=== PATIENT | male | born 1965 | race African-American/Black ===

== ENCOUNTER 2017-08-07 09:13 | Inpatient (IN) | payer OTHER ==
[~2017-08-07] VITALS: Ht 188 cm; Wt 85.3 kg
[2017-08-07] VITALS (19 sets, daily range): BP systolic 116–147; BP diastolic 68–92
[~2017-08-07 09:13] MED LIST: Glycopyrrolate 0.2mg/ml 1ml Vial ONE; LR 1000ml ONE; Midazolam 2mg/2ml Inj ONE; Morphine Sulfate 2mg/ml Inj ONE; Neostigmine 1mg/ml 10ml Inj ONE; Pantoprazole Inj ONE; Propofol 200mg/20ml IV ONE; Sterile Water Irrig 1000ml IRRIG ONE; Zemuron 50mg/5ml Inj IV ONE; ceFAZolin sod 2 GM in D5W 110 ML IVPB ONE; fentaNYL 100 mcg/2 mL IV ONE
[2017-08-07] MEDS ORDERED: NKM (10:11)
[2017-08-07] MEDS ORDERED: Bacitracin 50000 Units Vial ONE (12:41)
[2017-08-07] MEDS ORDERED: Thrombin 5000 units TOPIC ONE (12:41)
[2017-08-07] MEDS ORDERED: Bupivacaine 0.5% Inj 30 ml vial INJ ONE (12:41)
--- NOTE | 2017-08-07 12:57 | Pre-Procedure Note/Attestation ---
Pre-Procedure Note/Attestation Complete Prior to Procedure Procedure Narrative: TLIF L45 Indications for Procedure Pre-Operative Diagnosis: LUMBAR RADICULOPATHY AND SPONDYLOLISTHESIS L45 Attestation I attest that I discussed the nature of the procedure; its benefits; risks and complications; and alternatives (and the risks and benefits of such alternatives ), prior to the procedure, with the patient (or the patient's legal underwriting service representative). I attest that, if there was a reasonable possibility of needing a blood transfusion, the patient (or the patient's legal underwriting service representative) was given the [facility] standardized written summary, pursuant to the Alejandro Madeline Blood Safety Act ([place] Health and Safety Code # 1645, as amended). I attest that I re-evaluated the patient just prior to the surgery and that there has been no change in the patient's H&P, except as documented below: POLO GUTIÉRREZ Aug 07, 2017 12:57
[2017-08-07] MEDS ORDERED: ceFAZolin sod 1 GM in D5W 55 ML IV SCH (14:00)
--- NOTE | 2017-08-07 14:13 | Diagnostic Imaging Report ---
Indication: Back pain Technique: Lateral flexion and extension views of the lumbar spine Comparison: none Findings: There is very slight anterior offset of L4 on L5. Remaining bony alignment is normal. No significant change in bony alignment with flexion or extension. There is degenerative disc narrowing at L2-3 and very slight extent at L4-5 and L5-S1. No gross acute fractures. The included extra spinal soft tissues are unremarkable Impression: Degenerative changes No evidence of significant ligamentous instability
--- NOTE | 2017-08-07 14:29 | Anethesia Preoperative Eval ---
Anesthesia Pre-op PMH/ROS General Date of Evaluation: Aug 07, 2017 Time of Evaluation: 12:50 Anesthesiologist: Clint ASA Score: ASA 2 Mallampati Score Class I : Soft palate, uvula, fauces, pillars visible Class II: Soft palate, uvula, fauces visible Class III: Soft palate, base of uvula visible Class IV: Only hard plate visible Mallampati Classification: Class II Surgeon: Iglesia Diagnosis: Lumbar radiculopathy Surgical Procedure: L4-L5 discectomy with fusion Anesthesia History: none Family History: no anesthesia problems Allergies: Coded Allergies: NSAIDS (NON-STEROIDAL ANTI-INFLAMMA (Verified Adverse Reaction, Severe, ) severe pain, stomach bleeding Medications: see eMAR Past Medical History Cardiovascular: Denies: HTN, CAD, NH, valve dz, arrhythmia, other Gastrointestinal/Genitourinary: Reports: GERD, other - h/o of bleding ulcer; Denies: CRI, ESRD Neurologic/Psychiatric: Reports: depression/anxiety, other - chronic pain; Denies: dementia, CVA, TIA Endocrine: Denies: DM, hypothyroidism, steroids, other HEENT: Denies: cataract (L), cataract (R), glaucoma, TANANA (L), TANANA (R), other Hematology/Immune: Denies: anemia, DVT, bleeding disorder, other Musculoskeletal/Integumentary: Denies: OA, RA, DJD, DDD, edema, other PMH Narrative: as above PSxH Narrative: Knee and shoulder Sx Anesthesia Pre-op Phys. Exam Physician Exam Last Vital Signs Date Time Temp Pulse Resp B/P (MAP) Pulse Ox O2 Delivery O2 Flow Rate FiO2 08/07/17 10:09 98.1 62 18 127/91 99 Room Air 98.1 Constitutional: NAD Neurologic: CN 2-12 intact Cardiovascular: RRR, no M/R/G Respiratory: CTA Gastrointestinal: S/NT/ND Airway Exam Mallampati Score: Class II MO: full Neck: flexible ROM: full Teeth: intact Dentures: no upper, no lower Anesthesia Pre-op A/P Labs see chart Studies Pre-op Studies: EKG - NSR Risk Assessment & Plan Assessment: ASA 2 Plan: GA with ETT prone position neuromonitoring Status Change Before Surgery: No Pre-Antibiotics Drug: Ancef 2gr. Given Within 1 Hr of Incision: Yes Time Given: 13:40 IVETH BEDOYA M.D. Aug 07, 2017 14:29
[2017-08-07] MEDS ORDERED: Pantoprazole Inj IVP ONE (14:30)
[2017-08-07] MEDS ORDERED: Acetaminophen (Non formulary) 100 ML IV ONE (14:40)
[2017-08-07] MEDS ORDERED: Propofol 200mg/20ml IV ONE (15:23)
[2017-08-07] MEDS ORDERED: LR 1000ml 1,000 ML IVLG SCH (15:26)
[2017-08-07] MEDS ORDERED: Midazolam 2mg/2ml Inj IVP PRN (15:30)
[2017-08-07] MEDS ORDERED: DiphenhydrAMINE 50mg/ml Inj IVP PRN (15:30)
[2017-08-07] MEDS ORDERED: Meperidine 50mg/ml Inj(FOR RIGORS ONLY) IV PRN (15:30)
[2017-08-07] MEDS ORDERED: Rate Change PCA 1 Each MISC PRN (16:30)
[2017-08-07] MEDS ORDERED: Naloxone 0.4mg/ml Inj IVP PRN ×2 (16:30→21:30)
[2017-08-07] MEDS ORDERED: PCA HYDROmorphone 1mg/ml 30 ML IV PRN (16:30)
[2017-08-07] MEDS: Docusate 100mg cap ORAL SCH (18:00)
--- NOTE | 2017-08-07 18:15 | Brief Operative Note ---
Immediate Post Operative Note Operative Note Pre-op Diagnosis: LUMBAR RADICULOPATHY AND SPONDYLOLISTHESIS L45 Procedure: TLIF L45 Post-op Diagnosis: same as pre-op Findings: consistent w/pre-op dx studies Surgeon: MARLA House Calls Nurse: NGOC Anesthesiologist: AURELIANO Anesthesia: general Specimen: yes Complications: none Condition: stable Fluids: 1800CC Estimated Blood Loss: volume - 400CC Drains: hemovac Implant(s) used?: Yes POLO GUTIÉRREZ Aug 07, 2017 18:15
--- NOTE | 2017-08-07 18:39 | Immediate Post-Op Evaluation ---
Immediate Post-Op Evalulation Immediate Post-Op Evalulation Procedure: L4-L5 laminotomy with discectomy and interbody fusion Date of Evaluation: Aug 07, 2017 Time of Evaluation: 18:38 IV Fluids: 2000 Blood Products: none Estimated Blood Loss: 300 Urinary Output: 150 Blood Pressure Systolic: 142 Blood Pressure Diastolic: 78 Pulse Rate: 86 Respiratory Rate: 22 O2 Sat by Pulse Oximetry: 98 Temperature (Fahrenheit): 98.8 Pain Score (1-10): 2 Nausea: No Vomiting: No Complications none Patient Status: reacts, patent, extubated, none Hydration Status: adequate IVETH BEDOYA M.D. Aug 07, 2017 18:39
[2017-08-07] MEDS ORDERED: PCA shift volume MISC SCH (19:00)
[2017-08-07] MEDS: Hydromorphone 0.5mg/0.5ml inj IVP PRN ×2 (19:12→19:37)
[2017-08-07] MEDS ORDERED: PCA Education Pamphlet MISC ONE (21:00)
[2017-08-07] MEDS ORDERED: Norco 5mg/325mg tab ORAL PRN (21:30)
[2017-08-07] MEDS ORDERED: HYDROcodone/Acetamin 7.5/325 tab ORAL PRN ×2 (21:30)
[2017-08-07] MEDS ORDERED: LORazepam 1mg tab ORAL PRN (21:30)
[2017-08-07] MEDS ORDERED: HYDROmorphone 1mg/ml Carpuject SUBQ PRN (21:30)
[2017-08-07] MEDS: ceFAZolin sod 1 GM in D5W 55 ML IV SCH (22:08)
--- NOTE | 2017-08-07 22:41 | History and Physical ---
History of Present Illness General Date patient seen: Aug 07, 2017 Present Illness HPI 52 year old male with hx of multiple orthopedics surgeries, admitted for L4-L5 laminotomy with discectomy and interbody fusion. Pt is transferred to floor for post-op care and pain management. Allergies: Coded Allergies: NSAIDS (NON-STEROIDAL ANTI-INFLAMMA (Verified Adverse Reaction, Severe, ) severe pain, stomach bleeding Medication History Scheduled No Known Medications* (NKM - No Known Medications*), 0 ., (Reported) Patient History Healthcare decision maker NILAM RANGEL - Resuscitation status Full Code Advanced Directive on File Past Medical/Surgical History Past Medical/Surgical History: (1) Hx of knee surgery (2) Hx of shoulder surgery Review of Systems All Other Systems: negative except mentioned in HPI Physical Exam General Appearance: WD/WN Lines, tubes and drains: peripheral HEENT: normocephalic, atraumatic Neck: non-tender, supple Respiratory/Chest: chest wall non-tender, lungs clear Cardiovascular/Chest: normal rate Abdomen: normal bowel sounds Last 24 Hour Vital Signs Date Time Temp Pulse Resp B/P (MAP) Pulse Ox O2 Delivery O2 Flow Rate FiO2 08/07/17 20:07 98.3 08/07/17 20:00 98.3 66 13 116/74 100 Nasal Cannula 3.0 98.3 08/07/17 19:50 71 16 126/68 100 Nasal Cannula 3.0 08/07/17 19:37 70 19 124/82 100 Nasal Cannula 3.0 08/07/17 19:37 98.0 08/07/17 19:25 75 16 122/76 100 Nasal Cannula 3.0 08/07/17 19:17 98.0 08/07/17 19:12 98.0 08/07/17 19:12 79 24 133/76 100 Nasal Cannula 3.0 08/07/17 19:00 87 13 124/78 100 Simple Mask 6.0 08/07/17 18:47 74 15 134/84 100 Simple Mask 6.0 08/07/17 18:47 98.0 08/07/17 18:39 209.8 86 22 98 08/07/17 18:35 77 16 141/92 100 Simple Mask 6.0 08/07/17 18:30 100 16 146/92 100 Simple Mask 6.0 08/07/17 18:25 98.0 100 18 147/91 100 Simple Mask 6.0 98.0 08/07/17 10:09 98.1 62 18 127/91 99 Room Air 98.1 Height (Feet): 6 Height (Inches): 2.00 Weight (Pounds): 188 Medications Current Medications Medications (Trade) Dose Ordered Sig/Jean Route PRN Reason Start Time Stop Time Status Last Admin Dose Admin Acetaminophen/ Hydrocodone Bitart ([place] 5/325) 1 tab Q3H PRN ORAL pain score 1-3 08/07/17 21:30 08/14/17 21:29 Acetaminophen/ Hydrocodone Bitart ([place] 7.5/325) 1 tab Q3H PRN ORAL pain score 4-6 08/07/17 21:30 08/14/17 21:29 Acetaminophen/ Hydrocodone Bitart ([place] 7.5/325) 2 tab Q3H PRN ORAL pain scale 7-10 08/07/17 21:30 08/14/17 21:29 Cefazolin Sodium 1 gm/Dextrose 55 ml @ 110 mls/hr Q8H IV 08/07/17 21:00 08/14/17 20:59 08/07/17 22:08 Dextrose/ Electrolytes 1,000 ml @ 100 mls/hr Q10H IV 08/07/17 22:00 09/06/17 21:59 Diphenhydramine HCl (Benadryl) 25 mg Q6H PRN IVP Itching/Pruritis 08/07/17 21:30 08/09/17 21:29 Docusate Sodium (Colace) 100 mg TWICE A DAY ORAL 08/07/17 18:00 09/06/17 17:59 Hydromorphone HCl 30 ml @ 0 mls/hr Q24H PRN IV For Pain 08/07/17 16:30 08/09/17 16:29 Hydromorphone HCl (Dilaudid) 1 mg Q2H PRN IVP Moderate Pain (Pain Scale 4-6) 08/07/17 21:30 08/09/17 21:29 08/07/17 22:07 Hydromorphone HCl (Dilaudid) 1 mg Q2H PRN IVP Breakthrough Pain 08/07/17 21:30 08/14/17 21:29 Hydromorphone HCl (Dilaudid) 1 mg Q4H PRN SUBQ Mild Pain (Pain Scale 1-3) 08/07/17 21:30 08/14/17 21:29 Hydromorphone HCl (Dilaudid) 2 mg BEDTIME PRN SUBQ INSOMNIA FROM UNCONTROLLED NATASHA 08/07/17 21:30 08/14/17 21:29 Hydromorphone HCl (Dilaudid) 2 mg Q3H PRN SUBQ Severe Pain (Pain Scale 7-10) 08/07/17 21:30 08/14/17 21:29 Hydromorphone HCl (Dilaudid) 2 mg Q4H PRN SUBQ Moderate Pain (Pain Scale 4-6) 08/07/17 21:30 08/14/17 21:29 Lorazepam (Ativan) 1 mg Q4H PRN ORAL Muscle Spasm 08/07/17 21:30 08/09/17 21:29 Naloxone HCl (Narcan) 0.1 mg PRN PRN IVP RR<12/min, pt unarousable 08/07/17 21:30 09/06/17 21:29 Ondansetron HCl (Zofran) 4 mg Q6H PRN IVP Nausea & Vomiting 08/07/17 21:30 08/09/17 21:29 Temazepam (Restoril) 7.5 mg HSPRN PRN ORAL Insomnia 08/07/17 21:30 08/09/17 21:29 08/07/17 22:07 Assessment/Plan Problem List: (1) L4-L5 laminotomy with discectomy and interbody fusion Assessment/Plan post op care analgesics advance diet as tolerated symptomatic treatment. Thierno Donis MD Aug 07, 2017 22:41
[2017-08-08] VITALS: BP 130/70
[2017-08-08] MEDS: D5 1/2NS w/KCl 20mEq 1,000 ML IV SCH ×3 (00:58→15:07)
[2017-08-08 04:00] VITALS: BP 118/73
[2017-08-08] MEDS: ceFAZolin sod 1 GM in D5W 55 ML IV SCH ×3 (05:36→20:19)
[2017-08-08 07:29] LABS: BASOPHILS % (AUTO) 1.1 % (0.0-2.0); EOSINOPHILS % (AUTO) 2.4 % (0.0-3.0); HEMOGLOBIN 12.8 G/DL (14.2-18.0); LYMPHOCYTES % (AUTO) 23.6 % (20.0-45.0); MEAN CORPUSCULAR VOLUME 95 FL (80-99); MONOCYTES % (AUTO) 10.7 % (1.0-10.0); NEUTROPHILS % (AUTO) 62.1 % (45.0-75.0); PLATELET COUNT 176 K/UL (150-450); RED BLOOD COUNT 4.01 M/UL (4.70-6.10); RED CELL DISTRIBUTION WIDTH 12.6 % (11.6-14.8); WHITE BLOOD COUNT 6.5 K/UL (4.8-10.8)
[2017-08-08 07:40] LABS: ANION GAP 4 mmol/L (5-15); BLOOD UREA NITROGEN 15 mg/dL (7-18); CARBON DIOXIDE 30 MMOL/L (21-32); CHLORIDE 105 MMOL/L (98-107); CREATININE 1.5 MG/DL (0.55-1.30); POTASSIUM 4.1 MMOL/L (3.5-5.1); SODIUM 139 MMOL/L (136-145)
[2017-08-08 08:00] VITALS: BP 108/66
--- NOTE | 2017-08-08 08:26 | Diagnostic Imaging Report ---
Indication: Chronic back pain, intraoperative Technique: Intraoperative images Comparison: none Findings: Intraoperative images demonstrate localizing needles posterior was presumably L4 and S1. Subsequent images demonstrate posterior fusion and placement of a disc spacer at L4-5 Impression: Intraoperative imaging, as described
[2017-08-08] MEDS: Docusate 100mg cap ORAL SCH ×2 (09:00→18:00)
[2017-08-08 12:00] VITALS: BP 112/66
[2017-08-08] MEDS: Dexamethasone 4mg/ml vial IVP SCH ×2 (12:07→18:07)
--- NOTE | 2017-08-08 12:29 | Pulmonology Progress Note ---
Assessment/Plan Problems: (1) L4-L5 laminotomy with discectomy and interbody fusion Subjective Allergies: Coded Allergies: NSAIDS (NON-STEROIDAL ANTI-INFLAMMA (Verified Adverse Reaction, Severe, ) severe pain, stomach bleeding Objective Last 24 Hour Vital Signs Date Time Temp Pulse Resp B/P (MAP) Pulse Ox O2 Delivery O2 Flow Rate FiO2 08/08/17 12:01 97.6 08/08/17 08:17 97.6 08/08/17 07:47 97.6 08/08/17 04:00 97.6 59 18 118/73 100 97.6 08/08/17 03:57 97.5 08/08/17 00:00 97.5 76 18 130/70 100 97.5 08/07/17 23:10 60 20 122/81 100 08/07/17 22:10 63 20 121/85 100 08/07/17 21:40 62 20 120/88 100 08/07/17 21:10 69 20 118/75 100 08/07/17 20:55 66 20 116/75 100 08/07/17 20:40 68 20 116/76 100 08/07/17 20:25 65 20 116/78 100 08/07/17 20:10 97.6 78 20 122/72 100 97.6 08/07/17 20:07 98.3 08/07/17 20:00 98.3 66 13 116/74 100 Nasal Cannula 3.0 98.3 08/07/17 19:50 71 16 126/68 100 Nasal Cannula 3.0 08/07/17 19:37 70 19 124/82 100 Nasal Cannula 3.0 08/07/17 19:37 98.0 08/07/17 19:25 75 16 122/76 100 Nasal Cannula 3.0 08/07/17 19:17 98.0 08/07/17 19:12 98.0 08/07/17 19:12 79 24 133/76 100 Nasal Cannula 3.0 08/07/17 19:00 87 13 124/78 100 Simple Mask 6.0 08/07/17 18:47 74 15 134/84 100 Simple Mask 6.0 08/07/17 18:47 98.0 08/07/17 18:39 209.8 86 22 98 08/07/17 18:35 77 16 141/92 100 Simple Mask 6.0 08/07/17 18:30 100 16 146/92 100 Simple Mask 6.0 08/07/17 18:25 98.0 100 18 147/91 100 Simple Mask 6.0 98.0 Intake and Output 08/07/17 08/08/17 19:00 07:00 Intake Total 2000 ml 1400 ml Output Total 450 ml 975 ml Balance 1550 ml 425 ml Intake Oral 1400 ml IV Total 2000 ml Output Urine Total 150 ml 675 ml Estimated Blood Loss 300 ml 300 ml # Voids 1 Laboratory Tests 08/08/17 06:45: White Blood Count 6.5, Red Blood Count 4.01L, Hemoglobin 12.8L, Hematocrit 38.0L , Mean Corpuscular Volume 95, Mean Corpuscular Hemoglobin 32.0H, Mean Corpuscular Hemoglobin Concent 33.8, Red Cell Distribution Width 12.6, Platelet Count 176, Mean Platelet Volume 6.5, Neutrophils (%) (Auto) 62.1, Lymphocytes (% ) (Auto) 23.6, Monocytes (%) (Auto) 10.7H, Eosinophils (%) (Auto) 2.4, Basophils (%) (Auto) 1.1, Sodium Level 139, Potassium Level 4.1, Chloride Level 105, Carbon Dioxide Level 30, Anion Gap 4L, Blood Urea Nitrogen 15, Creatinine 1.5H, Estimat Glomerular Filtration Rate 59.8, Glucose Level 116H, Calcium Level 8.0L Current Medications Medications (Trade) Dose Ordered Sig/Jean Route PRN Reason Start Time Stop Time Status Last Admin Dose Admin Acetaminophen/ Hydrocodone Bitart ([place] 5/325) 1 tab Q3H PRN ORAL pain score 1-3 08/07/17 21:30 08/14/17 21:29 Acetaminophen/ Hydrocodone Bitart ([place] 7.5/325) 1 tab Q3H PRN ORAL pain score 4-6 08/07/17 21:30 08/14/17 21:29 Acetaminophen/ Hydrocodone Bitart ([place] 7.5/325) 2 tab Q3H PRN ORAL pain scale 7-10 08/07/17 21:30 08/14/17 21:29 Cefazolin Sodium 1 gm/Dextrose 55 ml @ 110 mls/hr Q8H IV 08/07/17 21:00 08/14/17 20:59 08/08/17 05:36 Dexamethasone Sodium Phosphate (Decadron 4mg/ml vial) 6 mg Q6HR IVP 08/08/17 12:00 09/07/17 11:59 08/08/17 12:07 Dextrose/ Electrolytes 1,000 ml @ 100 mls/hr Q10H IV 08/07/17 22:00 09/06/17 21:59 08/08/17 00:58 Diphenhydramine HCl (Benadryl) 25 mg Q6H PRN IVP Itching/Pruritis 08/07/17 21:30 08/09/17 21:29 Docusate Sodium (Colace) 100 mg TWICE A DAY ORAL 08/07/17 18:00 09/06/17 17:59 Hydromorphone HCl 30 ml @ 0 mls/hr Q24H PRN IV For Pain 08/07/17 16:30 08/09/17 16:29 Hydromorphone HCl (Dilaudid) 1 mg Q2H PRN IVP Moderate Pain (Pain Scale 4-6) 08/07/17 21:30 08/09/17 21:29 08/08/17 07:47 Hydromorphone HCl (Dilaudid) 1 mg Q2H PRN IVP Breakthrough Pain 08/07/17 21:30 08/14/17 21:29 Hydromorphone HCl (Dilaudid) 1 mg Q4H PRN SUBQ Mild Pain (Pain Scale 1-3) 08/07/17 21:30 08/14/17 21:29 Hydromorphone HCl (Dilaudid) 2 mg BEDTIME PRN SUBQ INSOMNIA FROM UNCONTROLLED NATASHA 08/07/17 21:30 08/14/17 21:29 Hydromorphone HCl (Dilaudid) 2 mg Q3H PRN SUBQ Severe Pain (Pain Scale 7-10) 08/07/17 21:30 08/14/17 21:29 Hydromorphone HCl (Dilaudid) 2 mg Q4H PRN SUBQ Moderate Pain (Pain Scale 4-6) 08/07/17 21:30 08/14/17 21:29 Lorazepam (Ativan) 1 mg Q4H PRN ORAL Muscle Spasm 08/07/17 21:30 08/09/17 21:29 Naloxone HCl (Narcan) 0.1 mg PRN PRN IVP RR<12/min, pt unarousable 08/07/17 21:30 09/06/17 21:29 Ondansetron HCl (Zofran) 4 mg Q6H PRN IVP Nausea & Vomiting 08/07/17 21:30 08/09/17 21:29 Temazepam (Restoril) 7.5 mg HSPRN PRN ORAL Insomnia 08/07/17 21:30 08/09/17 21:29 08/07/17 22:07 Thierno Donis MD Aug 08, 2017 12:29
[2017-08-08] MEDS: DiphenhydrAMINE 50mg/ml Inj IVP PRN ×2 (15:45→22:26)
--- NOTE | 2017-08-08 15:46 | Consultation ---
Consult Note Consult Note NEUROLOGY CONSULTATION: Full note dictated #[id number] 52 y/o, RH, BM with PH of L4-L5 spondylolisthesis with disabling back pain radiating into his legs on standing and walking for which he had a fusion with instrumentation on 08/07/17. When attempts were made to walk him he could not walk due to quadriceps weakness. In addition he felt an altered sensation over his anterior and medial thighs. ON EXAM: G 5/[address] due to back pain in B-IP Globally diminished DTRs Stance & gait deferred. IMPRESSION: Possible bilateral femoral nerve stretch with resolving neuropraxia. Globally diminished DTRs - etiology unknown. REC: W/U for neuropathy Mobilize with PT/OT soon. Observe. Taj Sommer M.D., M.S.P.TAJ MARQUEZ Aug 08, 2017 15:46
--- NOTE | 2017-08-08 15:51 | General Progress Note ---
Progress Note Progress Note POD 1 in the am saw and examined patient. 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 Subjective decreased sensation in the ant and med thing b/l and medial lower leg and decreased sensation in the forearms exam in the am around 11 am with decreased light touch in c6 nerve root distribition and over femoral nerve distribution weakness b/l quads 2/5 worse in the right; could not stand a and o times 3 I ordered studies: MRI brain and thoracic normal MRI Cervical 2-3 mm disc protusion with mild central stenosis and NF stenosis MRI L: excellent decompression at L4-5 with no significant stenosis and no nerve root compression CT L: right L5 screw 2 mm medial with out nerve root compression Exam at 330 pm today Motor strength now 5/5 in the LE including the quads LT almost fully resolved calves are soft and nt Hg 12.4 vitals normal and stable A: femoral nerve neuropraxia now almost fully resolved P: with continue to monitor steroids continue pain meds attempt to stand with PT tomorrow pain meds POLO GUTIÉRREZ Aug 08, 2017 15:51
[2017-08-08 16:00] VITALS: BP 119/68
--- NOTE | 2017-08-08 16:24 | 48 Hour Post Anesthesia Eval ---
Post Anesthesia Evaluation Procedure: L4-L5 laminotomy with discectomy and interbody fusion Date of Evaluation: Aug 08, 2017 Time of Evaluation: 16:21 Blood Pressure Systolic: 116 0: 58 Pulse Rate: 64 Respiratory Rate: 20 Temperature (Fahrenheit): 97.6 O2 Sat by Pulse Oximetry: 98 Airway: patent Nausea: No Vomiting: No Pain Intensity: 3 Hydration Status: adequate Cardiopulmonary Status: stable, patient complained on altered sensation in both LE R>L and weakness in both legs unable to walk. Mental Status/LOC: patient returned to baseline Follow-up Care/Observations: n/a Post-Anesthesia Complications: none Follow-up care needed: N/A IVETH BEDOYA M.D. Aug 08, 2017 16:23
--- NOTE | 2017-08-08 16:55 | Diagnostic Imaging Report ---
Indication: Bilateral leg numbness and weakness after lumbar spine surgery Technique: Sagittal T1 and T2 fast spin echo, sagittal STIR, coronal T2 FRFSE, Fleta axial T1 and T2 fast spin-echo images of the lumbar spine Comparison: none Findings: There is slight anterior offset of L4 on L5. The bony alignment is otherwise normal. There is a small L2 vertebral body hemangioma. Vertebral body marrow signal is otherwise normal. The conus medullaris terminates at the L1 level. Patient is status post posterior fusion with placement of hardware between L4 and L5. The L4 pedicle screws appear well aligned and entirely interim osseous. No stenosis of the L4-5 foramina demonstrated. No spinal canal stenosis. No significant disc bulge or protrusion. The left L5 pedicle screw appears entirely intraosseous. The right L5 pedicle screw traverses just slightly inferomedial medial to the inferomedial margin of the L5 pedicle, protruding very slightly into the right lateral recess and the superior aspect of the right L5 foramen. It is adjacent to but not definitely compressing the right L5 nerve root. It is remote from the thecal sac, which remains normal in caliber. Due to susceptibility artifact from the hardware, the actual L5-S1 foramen is not well visualized. The left L5-S1 foramen appears unremarkable. There is evidence of resection of the right L4 inferior facet and adjacent lamina, better appreciated on this accompanying CT. There is some edema of the paraspinous soft tissues adjacent to the lamina, particularly on the right. No evidence of significant hematoma. A surgical drain catheter is demonstrated, apparently terminating posterior to the L4 posterior elements. At L2-3, there is mild degenerative disc narrowing, minimal circumferential annular bulge and very slight subtle foraminal disc protrusion on the left. This does not significantly compromise the spinal canal. The protrusion in combination with facet arthrosis results in minimal narrowing of the left neural foramen. At L3-4, there is mild narrowing of the disc. There is minimal circumferential disc bulge but no significant disc protrusion. Facet arthrosis on the left results in minimal narrowing of the left neural foramen. The right neural foramen is preserved. No significant spinal stenosis At the remaining disc levels, no significant disc bulge or protrusion, spinal stenosis, or neural foraminal stenosis. The included extraspinal soft tissues are unremarkable. Impression: Postsurgical changes, as described, status post L4-5 posterior fusion, resection of the right L4 inferior facet and lamina Right L5 pedicle screw is situated slightly inferomedial to the inferomedial pedicle cortex, slightly within the adjoining lateral recess and upper aspect of the neural foramen. It abuts but does not appear to compress the adjacent L5 nerve root. No unusual fluid collections or postoperative hematoma demonstrated Minimal degenerative changes elsewhere, as described Images reviewed in person with Dr. Parekh
--- NOTE | 2017-08-08 16:59 | Diagnostic Imaging Report ---
Indication: Bilateral arm and leg weakness since lumbar surgery done the previous day Technique: Sagittal T1 FLAIR PROPELLER, sagittal T2 PROPELLOR, sagittal STIR, axial T2 PROPELLER, axial 3D COSMIC ASPIR images were obtained through the cervical spine Comparison: none Findings: Bony alignment is normal. Vertebral body marrow signal is normal. Intrinsic cord signal is normal. At C6-7, there is mild degenerative disc narrowing, circumferential annular bulge and mild posterior disc protrusion. This results in mild narrowing of the spinal canal to a minimum AP diameter of 9 mm. Uncinate hypertrophy and facet arthrosis results in moderate to severe narrowing of the neural foramina bilaterally. At C5-6 the disc space is preserved. There is minimal circumferential annular bulge which does not significant compromise of spinal canal. There is mild to moderate right, mild left neural foraminal stenosis, predominantly due to uncinate hypertrophy. At C7-T1, there is minimal circumferential annular bulge which does not significantly compromise the spinal canal. Facet arthrosis results in mild narrowing of the bilateral neural foramina. At the remaining disc levels, no significant disc narrowing, disc bulge or protrusion, spinal stenosis, or neural foraminal stenosis. The included extra spinal soft tissues are unremarkable Impression: Mild degenerative changes, as delineated below bilateral bases above. No definite significant neural compromise No acute abnormality Images reviewed in person previously with Dr. Parekh
--- NOTE | 2017-08-08 17:36 | Diagnostic Imaging Report ---
Indication: Bilateral arm and leg weakness since lumbar surgery performed one day prior Technique: Sagittal T1 fast spin echo, sagittal T2 fast echo, sagittal STIR, axial T1 and T2 fast spin echo images were obtained through the thoracic spine Comparison: none Findings: There is slight image degradation on the axial images due to motion artifact. Bony alignment is normal. Vertebral body heights are preserved. Vertebral body marrow signal is preserved. The disc spaces are preserved. No significant disc bulge or protrusion, spinal stenosis, or neural foraminal stenosis. The intrinsic cord signal is normal. Impression: Negative
--- NOTE | 2017-08-08 17:51 | Diagnostic Imaging Report ---
Indication: Bilateral arm and leg weakness since lumbar spinal surgery performed the previous day Technique: sagittal T1 fast spin echo, axial T1 FLAIR, axial T2 FLAIR, axial T2 FS PROPELLER, axial T2* GRE, axial diffusion weighted images. ADC and exponential ADC maps generated Comparison: none Findings: No abnormal areas of restricted diffusion to suggest acute infarction. No acute hemorrhage or edema. No mass effect nor midline shift. Normal size ventricles and extra axial CSF spaces. Visualized orbits and sinuses are unremarkable. Impression: Negative
--- NOTE | 2017-08-08 18:02 | Diagnostic Imaging Report ---
Indications: Reason For Exam: PAIN Technique: Spiral acquisitions obtained through the lumbar spine. Multiplanar reconstructions were generated. No IV contrast utilized. Total dose length product 674.74 mGycm. CTDIvol(s) 19.38 mGy. Dose reduction achieved using automated exposure control Comparison: Lumbar spine MRI performed earlier the same day Findings: Patient is status post recent posterior lumbar fusion at L4-5 as well as surgical removal of the right L4 inferior facet inferior aspect of the lamina.. A surgical drain is in place, tip to the left of the L4 spinous process. Some postoperative edema is seen in the soft tissues as well as retained air from the surgical wound, although no [place] fluid collections are demonstrated. The bilateral L4 pedicle screws are completely intraosseous. There is what appears to be a disc spacer in place. The left L5 pedicle screw is entirely intraosseous. The medial margin of the right L5 pedicle screw projects 2 to 3 mm inferior and medial to the navicular cortex, including very slightly into the right lateral recess and minimally into the superior aspect of the neural foramen. Soft tissue resolution in this area is limited by streak artifact from the adjacent hardware. No gross soft tissue hematoma is demonstrated. No significant neural foraminal compromise is evident. At L2-3, there is mild degenerative disc narrowing and vacuum formation. There is minimal circumferential annular bulge, which does not significantly compromise the spinal canal or neural foramina. At L3-4, there is mild circumferential annular bulge, which does not significantly, otherwise the spinal canal or neural foramina. There is mild bilateral L3-4 facet arthrosis as well as facet arthrosis at L4-5 on the left. At the remaining levels, no significant disc bulge or protrusion, spinal stenosis, The included extraspinal soft tissues are remarkable for what is probably the tip of one catheter in the bladder. There are degenerative changes of the bilateral hips Impression: Post surgical changes, as described. Note minimal protrusion of the right L5 pedicular screw outside the pedicle as described. No other unusual features Degenerative changes as detailed on a level by level basis above Findings reviewed in person previously with Dr. Parekh . The CT scanner at [facility] is accredited by the [employer] and the scans are performed using protocols designed to limit radiation exposure to as low as reasonably achievable to attain images of sufficient resolution adequate for diagnostic evaluation.
[2017-08-08] MEDS: HYDROmorphone 1mg/ml Carpuject IVP PRN ×3 (18:06→22:27)
[2017-08-08 20:00] VITALS: BP 144/86
[2017-08-09] VITALS: BP 112/64
--- NOTE | 2017-08-09 | Consultation ---
DATE OF CONSULTATION: 08/08/2016 NEUROLOGY CONSULTATION CONSULTING PHYSICIAN: Ry Sommer M.D. REQUESTING PHYSICIANS: Thierno Donis M.D. & Pierre Parekh M.D. HISTORY: Mr. Giuseppe Manzo is a 52-year-old, right-handed, black gentleman, who does have a past history of an L4-L5 spondylolisthesis with disabling back pain radiating into his legs on standing or walking for which he had an interbody fusion with instrumentation on 08/07/2017. When attempts were made to walk him on the morning of 08/08/2017, he could not walk due to quadriceps weakness. In addition, it was also felt that he had some mild iliopsoas weakness. He also complained of altered sensations over his anterior and medial thighs bilaterally. Since then, he has improved but continues to have significant problems with strength in his legs and as a result of that, this consultation was requested. At this point in time, the patient continues to complain of weakness in the legs, altered sensations on the anterior and medial aspects of his thighs and back pain. He, however, feels significantly better than what he did earlier this morning. PAST MEDICAL HISTORY: Significant for low back pain radiating to his legs. FAMILY HISTORY: Nothing significant neurologically. PERSONAL HISTORY: Home: He lives with his . 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 Habits: There is no history of tobacco or illicit drug use. He consumes approximately 2 alcoholic drinks in a month. PRESENT MEDICATIONS: Include Decadron 6 mg q.6 h. IV, Dilaudid single dose given earlier, Dilaudid p.r.n., [place] p.r.n. PHYSICAL EXAMINATION: GENERAL: He is a well-developed, well-nourished, pleasant black gentleman, lying in bed, in no acute distress. VITAL SIGNS: Pulse 69 per minute, blood pressure 112/66 mmHg, respirations 20 per minute, temperature 97.6 degrees Fahrenheit. HEAD: Normocephalic and atraumatic. NECK: No neck rigidity was observed. EENT: Benign. NEUROLOGIC EXAMINATION: MENTAL STATUS EXAMINATION: He was awake and alert. He was oriented to person, place, and time. He was able to recall 3/3 words immediately and could remember them after 1 minute, and 3 minutes on the second trial. He was able to remember presidents, Trump through Cage Sr. with minimal hints. His mathematical skills were fairly good. His visuospatial function was preserved. SPEECH: He had no dysarthria. LANGUAGE: He had no aphasia. CRANIAL NERVE EXAMINATION: II: The visual isbell were intact on confrontation testing III, IV & : The external ocular movements were full and the pupils 3 mm in diameter, equal, round, regular, and reactive to light. V: He had normal facial sensations and the temporales, masseters, and pterygoids functioned normally. VII: He had a normal facial expression and no facial asymmetry. VIII: He was able to hear well bilaterally and had no nystagmus. IX: The palate moved symmetrically on phonation. X: He had no hoarseness of voice. XI: The sternocleidomastoids and trapezii functioned normally. XII: The tongue was in the midline without any fasciculations or atrophy. MOTOR SYSTEM: The tone was normal in all four extremities. Examination of muscle mass revealed no focal wasting. Examination of power revealed grade 5/5 power with some give-away weakness in the iliopsoas muscles bilaterally. SENSORY EXAMINATION: He had intact sensations to pinprick, light touch, position and graphesthesia. COORDINATION: He performed well on [id number] testing. REFLEXES: Trace+ and bilaterally symmetrical at the biceps, triceps, brachioradialis, knees, and ankles. The plantar responses were flexor bilaterally. STANCE & GAIT: Were not be tested. DIAGNOSTIC IMPRESSION: 1. Mr. Giuseppe Manzo is a 52-year-old, right-handed, black gentleman, who does have a past history of L4-L5 spondylolisthesis with disabling low back pain radiating to his legs for which he had a fusion and instrumentation on 08/07/2017. When attempts were made to walk him on 08/08/2017, he was unable to walk due to weakness in his quadriceps. In addition, he was also noted to have some weakness in the iliopsoas muscles and altered sensations over his anterior and medial thighs. He has improved significantly since then. 2. On neurological examination at this time, he has G 5/5 power with some give-way weakness due to pain and discomfort involving both iliopsoas muscles, globally diminished deep tendon reflexes, and his stance and gait were not tested. 3. By report, he has had MRI scans of the brain, cervical spine, thoracic spine, and lumbosacral spine, which are benign for acute pathology. 4. 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 His globally diminished deep tendon reflexes are unexplained at this point in time. RECOMMENDATIONS: 1. Agree with management thus far. 2. The patient should be mobilized with physical and occupational therapy, preferably starting tomorrow. 3. He will be worked up thoroughly for treatable causes of neuropathy with a B12 level, folate level, vitamin D level, RPR, glycohemoglobin, Westergren sedimentation rate, TSH, and serum protein immunoelectrophoresis. Thank you for entrusting me with the care of Mr. Manzo. I shall follow him with you. Ry Sommer M.D., M.S.P.H. DR: Rosendo JOB#: [id number] FR[place]ERICK
[2017-08-09] MEDS: Dexamethasone 4mg/ml vial IVP SCH ×4 (00:24→17:29)
--- NOTE | 2017-08-09 00:45 | Operative Note - Dictated ---
DATE OF OPERATION: 08/07/2017 PREOPERATIVE DIAGNOSES: L4-L5 spondylolisthesis, disc protrusion, stenosis with foraminal stenosis and right lower extremity radiculopathy. POSTOPERATIVE DIAGNOSES: L4-L5 spondylolisthesis, disc protrusion, stenosis with foraminal stenosis and right lower extremity radiculopathy. PROCEDURE PERFORMED: 1. Posterior interbody fusion with radical diskectomy at L4-L5. 2. Posterolateral arthrodesis at L4-L5. 3. Pedicle screw instrumentation at L4-L5. 4. Implantation of PEEK interbody device at L4-L5. 5. Posterior osteotomy at L4-L5. 6. Implantation of allograft and local autograft at L4-L5. 7. Intraoperative use of microscope. 8. Intraoperative use of fluoroscopy. 9. SSEP and EMG monitoring. SURGEON: Pierre Parekh M.D. CATALOGUE CLERK: Alex Archibald M.D. ANESTHESIA: General endotracheal anesthesia. ANESTHESIOLOGIST: Pipo Lynne M.D. FINDINGS: Grade 2 spondylolisthesis at L4-L5 with motion on flexion,extension x-rays as well as lateral recess and foraminal stenosis with disc protrusion and nerve root impingement. ESTIMATED BLOOD LOSS: 300 mL. FLUIDS: 1800 mL of crystalloid. INDICATIONS: The is a pleasant gentleman, who failed nonoperative treatment and option for above treatment was given. Risks, alternatives, and benefits were discussed with the patient at length. Risks include, but are not limited to, anesthesia complications including , bleeding, infection, dural tear, CSF leak, nerve root injury, instability, reherniation, pseudarthrosis, screw cutoff, screw failure, nerve root injury, paralysis as well as other complications. The patient understood and wished to proceed. Preoperative flexion and extension x-rays standing were done, which was consistent with approximately 30% anterolisthesis at L4-L5 with motion on flexion-extension x-rays. DESCRIPTION OF OPERATION: The patient was brought into the operating room supine on a stretcher. Subsequently, appropriate IV lines were placed. 2 g of Ancef was administered. Anesthesia was induced and the patient was successfully intubated. Sequential compression devices were placed onto the bilateral lower extremities. The patient was turned over on the Dipak frame. All bony prominences were well padded and the abdomen was assured to lay freely. The L4-L5 interspace was identified with fluoroscopy. An indelible marker was used to remy the midline at the L4-L5 level in preparation for an L4-L5 fusion, instrumentation, and decompression. The patient was prepped and draped in usual sterile fashion with alcohol, chlorhexidine scrub, ChloraPrep, and Ioban draping. At this point, an incision was carried out over the midline and superficial hemostasis was achieved. A subperiosteal dissection at L4-L5 at this point was completed with dissection of the transverse processes of the L4-L5 facet and preservation of the L3-L4 facet joint capsule was done. Retractors were set into place. A radiopaque marker was placed at the level of the L5 pedicle, and the L4-L5 interspace was positively identified. At this point, attention was diverted to the right side at L4-L5 and a interlumbar laminotomy was first done with the use of # 2 through #5 Kerrison punches and a high-speed drill. The ligamentum flavum was removed and the lateral recess was decompressed, as there was significant stenosis in the lateral recess with a disc protrusion as well as significant foraminal stenosis to the exiting right L4 nerve root. At this point, decompression was done, however, there was significant foraminal stenosis and disc protrusion, which required a posterior osteotomy at right L4-L5. At this point, with osteotomes as well as a high speed drill, a complete osteotomy and facetectomy of the superior and inferior articular facets at L4-L5 was done for an excellent decompression of the exiting L4 nerve roots as well as the traversing L5 nerve root. The L5 pedicle was completely skeletonized to relieve the impingement on the traversing L5 nerve root. The osteotomy also allowed for a more lateral starting point for interbody fusion and radical discectomy. At this point, with a #11 scalpel, a box incision was made in the posterior anulus and with the use of different shaped and sized shaver instruments, Jones curettes, pituitary rongeurs as well as a box curette, a radical diskectomy at L4-L5 was accomplished and all endplate cartilage was removed, endplate bone was well preserved, and at this point, different trials from the [employer] [facility] were used. The trial that fit well and closed the endplates and recreated disc height was a 9 x 26 x 6 degree lordotic trial. At this point, that PEEK 9 mm x 25 mm x 6 degrees was chosen from the [employer] Cage System and was packed with bone morphogenic protein, local autograft, and Gray allograft and was made ready to be placed into the interbody space. At this point, into the anterior interbody space, bone morphogenic protein Pushpa and autograft were placed and subsequently, the PEEK interbody device was tamped into place with excellent positioning in the interbody space and excellent apposition against the endplate. Once this was completed, AP and lateral fluoroscopy was done and the PEEK was found to be in excellent position. Now, attention was diverted to pedicle screw instrumentation. The mamillated processes were identified at L4 and L5 bilaterally and with a high-speed drill, the center of the mamillary process was drilled, and with appropriate pedicle finders, the center of the pedicle was probed under biplanar fluoroscopy and with a ball-tip probe, the barillas of the pedicles were checked and there were no cortical breaches. At this point, each hole was packed and the following pedicle screws were placed; at L4 bilaterally 6.0 x 50 mm screws were placed, at L5 bilaterally 6.0 x 45 mm screws were placed. Each screw had excellent purchase and stimulus-evoked EMG was done, and at 20 milliamps of current, there was no conduction in the respective nerve roots. Once this was done, AP and lateral fluoroscopy was done and all instrumentation was found to be in excellent position. Now, decortication of the left facet joint transverse processes were done and appropriate alma and set screws were placed at L4-L5. The set screws were torqued appropriately and there was excellent reduction of the spondylolisthesis after placement of the rods. Once decortication was done, Gray and local autograft were placed for an intertransverse fusion as well as the facet fusion on the left side and once this was completed, attention was diverted to placing Tisseel fibrin glue at the posterior annulotomy site. Before this was done, the wound was copiously irrigated with triple antibiotic solution and then the Tisseel was placed and then superficial irrigation was also used. Now, hemostasis was achieved. There was no bleeding. A subfascial Hemovac drain was placed and the dorsal lumbar fascia was closed with #1 Vicryl sutures in a watertight fashion. The subdermal and subcuticular layers were closed with 2-0 Vicryl sutures. The skin was closed with a Dermabond. All sponge, needle, and instrument counts were correct. Final fluoroscopy images revealed all instrumentation to be in good position. EBL was 300 mL. Fluids was 1800 mL of crystalloid. SSEP remained stable throughout the case. There was no EMG activity, and at this point, sterile dressing tape was placed. The patient was turned supine, was extubated in stable condition, was taken to the recovery room in stable condition. Neurovascular check in the recovery room revealed all motor groups to be intact in the lower extremities. The patient was admitted to the hospital for monitoring. Pierre Parekh M.D. DR: MARTIN JOB#: [id number] CC:
[2017-08-09] MEDS: D5 1/2NS w/KCl 20mEq 1,000 ML IV SCH ×3 (02:48→14:00)
[2017-08-09] MEDS: HYDROmorphone 1mg/ml Carpuject IVP PRN ×5 (02:48→15:51)
[2017-08-09 04:00] VITALS: BP 152/105
[2017-08-09] MEDS: DiphenhydrAMINE 50mg/ml Inj IVP PRN (05:27)
[2017-08-09] MEDS: ceFAZolin sod 1 GM in D5W 55 ML IV SCH ×2 (05:58→12:55)
[2017-08-09 08:00] VITALS: BP 147/88
[2017-08-09] MEDS: Docusate 100mg cap ORAL SCH ×2 (08:36→17:29)
[2017-08-09 10:22] LABS: HEMOGLOBIN 12.5 G/DL (14.2-18.0); MEAN CORPUSCULAR VOLUME 94 FL (80-99); PLATELET COUNT 188 K/UL (150-450); RED BLOOD COUNT 3.92 M/UL (4.70-6.10); RED CELL DISTRIBUTION WIDTH 12.2 % (11.6-14.8); WHITE BLOOD COUNT 13.3 K/UL (4.8-10.8)
[2017-08-09 10:32] LABS: ANION GAP 7 mmol/L (5-15); BLOOD UREA NITROGEN 19 mg/dL (7-18); CALCIUM 8.8 MG/DL (8.5-10.1); CARBON DIOXIDE 28 MMOL/L (21-32); CHLORIDE 100 MMOL/L (98-107); CREATININE 1.5 MG/DL (0.55-1.30); POTASSIUM 4.8 MMOL/L (3.5-5.1); SODIUM 135 MMOL/L (136-145)
[2017-08-09 12:00] VITALS: BP 126/76
--- NOTE | 2017-08-09 13:55 | Neurology Progress Note ---
Interim History Interim History Interim History Mr. Manzo feels much better today. The low back pain has improved. The legs feel stronger. The altered sensations in the legs is less intense. He was able to walk with the PT today. He denies any new neurologic symptoms. Review of Systems Neuro Review of Systems Benign. Objective Physical Exam Last Vital Signs Date Time Temp Pulse Resp B/P (MAP) Pulse Ox O2 Delivery O2 Flow Rate FiO2 08/09/17 12:00 98.0 68 19 126/76 100 Room Air 98.0 08/07/17 20:00 3.0 Laboratory Tests Test 08/08/17 20:30 08/09/17 10:00 Hemoglobin A1c 6.3 % (4.3-6.0) H Total Protein (PEP) Pending Albumin (PEP) Pending Globulin (PEP) Pending Albumin/Globulin Ratio Pending [id number] Pending [id number] Pending Beta Globulins Pending Beta Gamma Globulin Pending PEP Abnormal Protein Bands Pending Protein Electrophoresis Interpret Pending Vitamin B12 Level 391 PG/ML (193-986) Vitamin D 25-Hydroxy Pending 25-Hydroxy Vitamin D2 Pending 25-Hydroxy Vitamin D3 Pending Folate 5.2 NG/ML (8.6-58.9) L Thyroid Stimulating Hormone (TSH) 0.223 uiU/mL (0.358-3.740) Rapid Plasma Reagin Pending White Blood Count 13.3 K/UL (4.8-10.8) #H Red Blood Count 3.92 M/UL (4.70-6.10) L Hemoglobin 12.5 G/DL (14.2-18.0) L Hematocrit 37.0 % (42.0-52.0) L Mean Corpuscular Volume 94 FL (80-99) Mean Corpuscular Hemoglobin 32.0 PG (27.0-31.0) H Mean Corpuscular Hemoglobin Concent 33.9 G/DL (32.0-36.0) Red Cell Distribution Width 12.2 % (11.6-14.8) Platelet Count 188 K/UL (150-450) Mean Platelet Volume 7.2 FL (6.5-10.1) Neutrophils (%) (Auto) % (45.0-75.0) Lymphocytes (%) (Auto) % (20.0-45.0) Monocytes (%) (Auto) % (1.0-10.0) Eosinophils (%) (Auto) % (0.0-3.0) Basophils (%) (Auto) % (0.0-2.0) Differential Total Cells Counted 100 Neutrophils % (Manual) 88 % (45-75) H Lymphocytes % (Manual) 7 % (20-45) L Monocytes % (Manual) 5 % (1-10) Eosinophils % (Manual) 0 % (0-3) Basophils % (Manual) 0 % (0-2) Band Neutrophils 0 % (0-8) Platelet Estimate Adequate Platelet Morphology Normal Red Blood Cell Morphology Normal Sodium Level 135 MMOL/L (136-145) L Potassium Level 4.8 MMOL/L (3.5-5.1) Chloride Level 100 MMOL/L (98-107) Carbon Dioxide Level 28 MMOL/L (21-32) Anion Gap 7 mmol/L (5-15) Blood Urea Nitrogen 19 mg/dL (7-18) H Creatinine 1.5 MG/DL (0.55-1.30) H Estimat Glomerular Filtration Rate 59.8 mL/min (>60) Glucose Level 158 MG/DL (74-106) H Calcium Level 8.8 MG/DL (8.5-10.1) Neurologic Exam Objective PHYSICAL EXAMINATION: GENERAL: He is a well-developed, well-nourished, pleasant black gentleman, lying in bed, in no acute distress. HEAD: Normocephalic and atraumatic. NECK: No neck rigidity was observed. EENT: Benign. NEUROLOGIC EXAMINATION: MENTAL STATUS EXAMINATION: He was awake and alert. He was oriented to person, place, and time. He was able to recall 3/3 words immediately and could remember them after 1 minute, and 3 minutes on the second trial. He was able to remember presidents, Trump through Cage Sr. with minimal hints. His mathematical skills were fairly good. His visuospatial function was preserved. SPEECH: He had no dysarthria. LANGUAGE: He had no aphasia. CRANIAL NERVE EXAMINATION: II: The visual isbell were intact on confrontation testing. III, IV & : The external ocular movements were full and the pupils 3 mm in diameter, equal, round, regular, and reactive to light. V: He had normal facial sensations and the temporales, masseters, and pterygoids functioned normally. VII: He had a normal facial expression and no facial asymmetry. VIII: He was able to hear well bilaterally and had no nystagmus. IX: The palate moved symmetrically on phonation. X: He had no hoarseness of voice. XI: The sternocleidomastoids and trapezii functioned normally. XII: The tongue was in the midline without any fasciculations or atrophy. MOTOR SYSTEM: The tone was normal in all four extremities. Examination of muscle mass revealed no focal wasting. Examination of power revealed grade 5/5 power with some give-away weakness in the iliopsoas muscles bilaterally. SENSORY EXAMINATION: He had intact sensations to pinprick, light touch, position and graphesthesia. COORDINATION: He performed well on [id number] testing. REFLEXES: Trace+ and bilaterally symmetrical at the biceps, triceps, brachioradialis, knees, and ankles. The plantar responses were flexor bilaterally. STANCE & GAIT: Were not be tested. However he reported that he walked well with the PT. Impression/Recommendations Diagnostic Impression 1. Mr. Giuseppe Manzo is a 52-year-old, right-handed, black gentleman, who does have a past history of L4-L5 spondylolisthesis with disabling low back pain radiating to his legs for which he had a fusion and instrumentation on 2017. When attempts were made to walk him on 08/08/2017, he was unable to walk due to weakness in his quadriceps. In addition, he was also noted to have some weakness in the iliopsoas muscles and altered sensations over his anterior and medial thighs. He has improved significantly since then. 2. He feels much better. The low back pain has improved. The legs feel stronger. The altered sensations in the legs is less intense. He was able to walk with the PT today. He denies any new neurologic symptoms. 3. On neurological examination at this time, he has G 5/5 power with no give- way weakness, globally diminished deep tendon reflexes, and his stance and gait were not tested. 4. Laboratory tests have revealed that he has a low B 12 level and elevated HbA1C. 5. By report, he has had MRI scans of the brain, cervical spine, thoracic spine , and lumbosacral spine, which are benign for acute pathology. 6. 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 His globally diminished deep tendon reflexes could be related to a B12 deficiency and pre-diabetic neuropathy. Recommendations 1. Continue present management. 2. Mobilize with physical and occupational therapy. 3. Vitamin B 12 - 1000 mcg SC daily x 3 days and then q month. 4. Management of pre-diabetes. Taj Miller M.D., M.S.P.H. TAJ MILLER Aug 09, 2017 13:55
--- NOTE | 2017-08-09 14:57 | General Progress Note ---
Progress Note Progress Note leg symptoms completely resolved lbp mild a and o times 3 legs 5/5 motor sensation normal calves soft and nt inc cdi dressing changed maciel dcd a: doing well P: oob pt labs urine check neuro fu fu with me in 7 days pain management POLO GUTIÉRREZ Aug 09, 2017 14:57
[2017-08-09 16:00] VITALS: BP 138/76
[2017-08-09] MEDS ORDERED: Vitamin B12 1000mcg/ml Inj SUBQ SCH (16:00)
[2017-08-09] MEDS ORDERED: D5 1/2NS 1000ml IV ONE (17:26)
[2017-08-09] MEDS ORDERED: NORCO 5-325 TA1 EAC1 ORAL (17:50)
--- NOTE | 2017-08-12 13:56 | Discharge Summary ---
Discharge Summary Hospital Course Date of Admission Aug 07, 2017 at 09:13 Date of Discharge Aug 09, 2017 at 18:00 Admitting Diagnosis HPI Giuseppe Manzo is a 52 year old male who was admitted on Aug 07, 2017 at 09:13 for Transforaminal Lumbar Instrumentation Consultations dr Donis - IM dr Sommer - neurologist Procedures s/p 08/[address] Parekh ( dr Archibald occupational therapy assistant) 1. Posterior interbody fusion with radical diskectomy at L4-L5. 2. Posterolateral arthrodesis at L4-L5. 3. Pedicle screw instrumentation at L4-L5. 4. Implantation of PEEK interbody device at L4-L5. 5. Posterior osteotomy at L4-L5. 6. Implantation of allograft and local autograft at L4-L5. 7. Intraoperative use of microscope. 8. Intraoperative use of fluoroscopy. 9. SSEP and EMG monitoring. Hospital Course s/p surgery initially with LE weakness, unable to stand up to work with PT MRI brain , C,T, L spine MRI all done and reviewed by surgeon likely femoral nerve neurapraxia patient was started on steroids neuro consult seen and evaluated, agreed with diagnosis and management next day femoral nerve neurapraxia resolved patient was able to work with PT/OT, fall precautions maintained 5/5 strength, sensation intact, normal n/v exam dressing changed by surgeon pain management, reid controlled Darby dc IM doctor followed tolerated diet voided w/out difficulties stable or dc outpt f/up with surgeon as advised dc instructions and scripts for analgesics provided FINAL DIAGNOSIS L4-L5 spondylolisthesis with disc protrusion, stenosis with foraminal stenosis right lower extremity radiculopathy. s/p L4-L5 laminotomy with discectomy and interbody fusion femoral nerve neurapraxia Discharge Medications Continued Medications: Hydrocodone Bit/Acetaminophen 5-325* (Lyman 5-325 Tablet*) 1 Each Tablet 1 TAB ORAL Q6HR PRN for For Pain, #50 TAB (This prescription has been renewed) Discharge Condition Upon Discharge: stable Discharge Disposition Patient was discharged to Home () Discharge Instructions Discharge Instructions Special Instructions I have been assigned to complete a D/C Summary on this account. I was not involved in the patient management Ivett Oakley NP ([place]) Aug 12, 2017 13:56
== END 2017-08-09 18:00 | disposition home or self-care (01) | DRG 460 ==
LOC: SDSOVERFLO 09:13 → 3E 15:23
PROC: 0SG00AJ Fusion of Lumbar Vertebral Joint with Interbody Fusion Device, Posterior Approach, Anterior Column, Open Approach (ICD-10-PCS; principal; 2017-08-07 11:00)
PROC: 4A11X4G Monitoring of Peripheral Nervous Electrical Activity, Intraoperative, External Approach (ICD-10-PCS; principal; 2017-08-07 11:00)
PROC: 0ST20ZZ Resection of Lumbar Vertebral Disc, Open Approach (ICD-10-PCS; principal; 2017-08-07 11:00)
DX: M51.16 Intervertebral disc disorders with radiculopathy, lumbar region (principal); E53.8 Deficiency of other specified B group vitamins; M48.061 Spinal stenosis, lumbar region without neurogenic claudication; M62.81 Muscle weakness (generalized); M43.16 Spondylolisthesis, lumbar region
CPT/HCPCS: 36415; 70551; 72020; 72131; 72141; 72146; 72148; 76001; 80048; 82306; 82607; 82746; 83036; 84165; 84443; 85007; 85025; 85651; 86592; 86850; 86900; 86901; 87081; 94003; 94150; J2250; J2710